=== PATIENT | female | born 1955 ===

== ENCOUNTER 2025-04-06 10:19 | Emergency (ER) | payer OTHER, BC ==
[~2025-04-06] VITALS: Ht 162.6 cm; Wt 56.7 kg
[2025-04-06] MEDS ORDERED: CRESTOR40 MG PO (10:23)
[2025-04-06] MEDS ORDERED: CLINDAMYCIN PHOSPHATE 150 MG/ML (300mg) IM STA (10:32)
== END 2025-04-06 10:43 | disposition home or self-care (01) ==
LOC: ER 10:19
DX: S40.812A Abrasion of left upper arm, initial encounter (principal); Z88.8 Allergy status to other drugs, medicaments and biological substances
CPT/HCPCS: 96372; 99282; J3490